=== PATIENT | male | born 1985 | race Caucasian/White ===

== ENCOUNTER 2019-03-19 10:21 | Emergency (ER) | payer OTHER ==
[~2019-03-19] VITALS: Ht 188 cm; Wt 114.8 kg
[2019-03-19] MEDS ORDERED: CLINDAMYCIN HCL 150 MG CAPSULE PO ONE ×2 (12:00→12:07)
[2019-03-19] MEDS ORDERED: DEXAMETHASONE SOD PHOSPHATE 4 MG/ML VIAL IM ONE (12:00)
[2019-03-19] MEDS ORDERED: IBUPROFEN 400 MG TABLET PO ONE (12:00)
--- NOTE | 2019-03-19 12:00 | NUR ---
PT PRESENTED TO THE ER WITH A C/O FLU LIKE SYMPTOMS. PT IS C/O SORE THROAT. PT AMBULATED TO THE ER WITH A STEADY GAIT.
[2019-03-19] MEDS ORDERED: DEXAMETHASONE SOD PHOSPHATE 10 MG/ML VIAL ONE (12:07)
[2019-03-19] MEDS ORDERED: IBUPROFEN 400 MG TABLET ONE (12:07)
--- NOTE | 2019-03-19 13:22 | NUR ---
Patient discharged to home in stable condition. Written and verbal after care instructions given. Patient verbalizes understanding of instruction AND RX.
[2019-03-19 14:09] VITALS: BP 120/67
== END 2019-03-19 13:22 | disposition home or self-care (01) ==
LOC: ER 10:23
DX: J02.9 Acute pharyngitis, unspecified (principal); H92.02 Otalgia, left ear
CPT/HCPCS: 96372; 99283; J1100